=== PATIENT | male | born 2000 | race Caucasian/White ===

== ENCOUNTER 2020-07-18 08:33 | Outpatient (CLI) | payer BC ==
--- NOTE | 2020-07-18 09:05 | ULT ---
EXAM: Abdominal ultrasound complete: HISTORY: Abdominal pain COMPARISON: None FINDINGS: The liver appears unremarkable. The gallbladder demonstrates no evidence for gallstones, wall thickening, or pericholecystic fluid. The common bile duct is Within normal limits. Visualized pancreas: Unremarkable. Visualized abdominal aorta: Unremarkable. Visualized IVC: Unremarkable. Visualized spleen: Unremarkable. Visualized kidneys: No evidence for hydronephrosis or solid or cystic mass. No mass, abscess, adenopathy, or abnormal fluid collection or other acute process. IMPRESSION: Unremarkable abdominal ultrasound.
== END 2020-07-18 08:34 | disposition home or self-care (01) ==
LOC: BICULT 08:33
PROVIDERS: ATTEND Internal Medicine
DX: K92.1 Melena (principal); R10.30 Lower abdominal pain, unspecified; K52.9 Noninfective gastroenteritis and colitis, unspecified; R89.0 Abnormal level of enzymes in specimens from other organs, systems and tissues
CPT/HCPCS: 93975